=== PATIENT | male | born 1955 | race Native Hawaiian/Other Pacific Islander ===

== ENCOUNTER 2017-06-06 06:43 | Outpatient (CLI) | payer OTHER ==
[~2017-06-06 06:43] MED LIST: ADIPEX-P37.5 M1 PO; ALBU90AE13 INH; ALBUTEROL0.083 % IN; ALLERCLEAR10 MG PO; COLCRYS PO; DIAZ5TAB20 PO; DIAZEPAM10 MG PO; INDOCIN50 MG; INDOCIN50 MG PO; LISI10TA11 PO; LISI5TAB10 PO; METO25TA4 OR; PANT40TA PO; PAROXETINE40 MG PO; PERCOCET1 TA2 PO; PRED20TA27 PO; PROAIR HFA IN; TIZA4TAB5 PO; WELLBUTRIN100 M1 PO; ZOFRAN ODT8 MG OR; ZOLP10TA2 PO
[2017-06-06 07:05] LABS: PLATELET COUNT 189 K/uL (142-355)
[2017-06-06 07:37] LABS: POTASSIUM 4.8 mmol/L (3.6-5.2)
== END 2017-06-06 19:17 | disposition home or self-care (01) ==
LOC: LABW 06:43
PROVIDERS: Physician Assistant
DX: I10 Essential (primary) hypertension (principal); E66.8 Other obesity; R35.1 Nocturia; R79.89 Other specified abnormal findings of blood chemistry
CPT/HCPCS: 36415; 80053; 80061; 83036; 84153; 84439; 84443; 85027

== ENCOUNTER 2017-12-07 12:59 | Outpatient (CLI) | payer OTHER ==
[2017-12-07 14:19] LABS: PLATELET COUNT 210 K/uL (142-355)
[2017-12-07 14:28] LABS: POTASSIUM 4.6 mmol/L (3.6-5.2)
== END 2017-12-07 19:42 | disposition home or self-care (01) ==
LOC: LABW 12:59
PROVIDERS: Physician Assistant Medical
DX: M10.9 Gout, unspecified (principal); I10 Essential (primary) hypertension
CPT/HCPCS: 36415; 80053; 80061; 84550; 85027

== ENCOUNTER 2018-03-02 09:24 | Outpatient (CLI) | payer OTHER | END 2018-03-02 23:24 | disposition home or self-care (01) | LOC: RAD 09:24 | DX: M51.36 Other intervertebral disc degeneration, lumbar region (principal); J45.901 Unspecified asthma with (acute) exacerbation ==

== ENCOUNTER 2018-05-23 10:01 | Outpatient (CLI) | payer OTHER | END 2018-05-23 23:51 | disposition home or self-care (01) | LOC: CT 10:01 | DX: M54.5 Low back pain (principal); Z79.899 Other long term (current) drug therapy; E66.8 Other obesity ==